=== PATIENT | female | born 1990 | race Caucasian/White ===

== ENCOUNTER 2021-03-21 16:47 | Emergency (ER) | payer MEDICAID, OTHER ==
[2021-03-21] MEDS ORDERED: XYLOCAINE 1% HCL 20 ML MDV IJ ONE (16:48)
[2021-03-21 17:30] LABS: Appearance CLEAR (CLEAR); Bacteria RARE /HPF (NEGATIVE); Bilirubin NEGATIVE (NEGATIVE); Blood NEGATIVE Ery/ul (0-5); Epithelial Cells RARE /HPF (FEW); Glucose NEGATIVE (NEGATIVE); Ketones NEGATIVE (NEGATIVE); Leukocyte Esterase MODERATE (NEGATIVE); Nitrite NEGATIVE (NEGATIVE); Protein,Urine Dip NEGATIVE (Negative); Specific Gravity 1.003 (1.005-1.025); Urobilinogen NEGATIVE mg/dL (0-1)
--- NOTE | 2021-03-21 17:32 | ERPHSYRPT ---
- History of Present Illness Time Seen by Provider: 03/21/21 16:58 Historian: patient Exam Limitations: no limitations Patient Subjective Stated Complaint: Pt states that she has had left quadrant pain for the past 3 days Triage Nursing Assessment: Pt brought self to the ER, tachycardic, rates pain 6/10, N&V, pain to left quadrants without radiation, skin n/w/d, pulses normal, bowel movements normal, pt did have burning with urination and has been taking AZO and the burning has stopped, doesn't appear to be in any distress Physician History: Patient is a 30-year-old female presents to emergency department for evaluation of left lower quadrant pain. Pain started approximately 3 days ago. Patient thought she may have been developing a urinary tract infection. She took [id number] Azo however this has not helped very much. Pain described as an ache that is constant. Pain worse with palpation. No radiation. No change in bowel movements. No diarrhea. No nausea no vomiting. No trauma. No fever. Symptoms are mild to moderate in intensity. Patient states there is some concern with possible infidelity on her 's side. However this has not been confirmed. Patient states that she wants to be checked for possible STI. Patient otherwise healthy. She voices no other complaints or concerns at this time. Patient declined pain medication. Timing/Duration: day(s) (3 days) Activities at Onset: none Quality: aching Abdominal Pain Onset Location: LLQ Pain Radiation: no radiation Severity of Pain-Max: moderate Severity of Pain-Current: mild Modifying Factors: Improves With: other (Palpation) Associated Symptoms: denies symptoms Allergies/Adverse Reactions: No Known Drug Allergies Allergy (Verified 03/21/21 17:04) Hx Tetanus, Diphtheria Vaccination/Date Given: No Hx Influenza Vaccination/Date Given: No Hx Pneumococcal Vaccination/Date Given: No Travel Risk - International Travel Have you traveled outside of the country in past 3 weeks: No - Coronavirus Screening Are you exhibiting any of the following symptoms?: No Close contact with a COVID-19 positive Pt in past 14-21 Days: No - Vaccine Status Have you recieved a Covid-19 vaccination: No - Review of Systems Constitutional: No Symptoms, No Fever, No Chills Eyes: No Symptoms Ears, Nose, & Throat: No Symptoms Respiratory: No Symptoms, No Cough, No Dyspnea Cardiac: No Symptoms, No Chest Pain, No Edema, No Syncope Abdominal/Gastrointestinal: No Symptoms, No Abdominal Pain, No Nausea, No Vomiting, No Diarrhea Genitourinary Symptoms: No Symptoms, No Dysuria Musculoskeletal: No Symptoms, No Back Pain, No Neck Pain Skin: No Symptoms, No Rash Neurological: No Symptoms, No Dizziness, No Focal Weakness, No Sensory Changes Psychological: No Symptoms Endocrine: No Symptoms Hematologic/Lymphatic: No Symptoms Immunological/Allergic: No Symptoms All Other Systems: Reviewed and Negative - Past Medical History Pertinent Past Medical History: No - Past Surgical History Past Surgical History: Yes Female Surgical History: Tubal Ligation - Social History Smoking Status: Current every day smoker How long have you smoked: YRS Exposure to second hand smoke: Yes Drug Use: none Patient Lives Alone: No - Female History Hx Last Menstrual Period: 02/28/2021 Hx Now: No - Nursing Vital Signs Nursing Vital Signs: Initial Vital Signs Temperature 98.6 F 03/21/21 16:53 Pulse Rate 108 H 03/21/21 16:53 Blood Pressure 131/82 03/21/21 16:53 O2 Sat by Pulse Oximetry 97 03/21/21 16:53 Pain Scale Pain Intensity 0 - Physical Exam General Appearance: no apparent distress, alert Eye Exam: PERRL/EOMI, eyes nml inspection Ears, Nose, Throat Exam: normal ENT inspection, pharynx normal, moist mucous membranes Neck Exam: normal inspection, non-tender, supple, full range of motion Respiratory Exam: normal breath sounds, lungs clear, airway intact, No respiratory distress Cardiovascular Exam: regular rate/rhythm, normal heart sounds, normal peripheral pulses Gastrointestinal/Abdomen Exam: soft, No tenderness, No mass Pelvic Exam: normal external exam, adnexal tenderness (Right adnexal tenderness. This appears to reproduce her symptoms.), No cervical motion tenderness, No vaginal bleeding, No uterine tenderness, No vaginal discharge Back Exam: normal inspection, normal range of motion, No CVA tenderness, No vertebral tenderness Extremity Exam: normal inspection, normal range of motion, pelvis stable Neurologic Exam: alert, oriented x 3, cooperative, normal mood/affect, nml cerebellar function, sensation nml, No motor deficits Skin Exam: normal color, warm, dry SpO2 Interpretation: normal SpO2: 97 O2 Delivery: Room Air - Course Nursing assessment & vital signs reviewed: Yes - CT Exams Abdomen/Pelvis CT Interpretation: Tele-radiologist Report (Continue negative abdomen pelvis. Compared to 06/18/2012. No new acute findings.) - Radiology Ultrasound Exam Pelvis Ultrasound: discussed w/radiologist (Per foundry process engineer ultrasound pelvis is negative for acute pelvic pathology.) Ordered Tests: Active Orders 24 hr Category Date Time Status ABDOMEN AND PELVIS W/0 CONTRAS [CT] Stat Exams 03/21/21 17:23 Taken PELVIC [US] Stat Exams 03/21/21 17:21 Taken CBC W DIFF Stat Lab 03/21/21 17:49 Completed CMP Stat Lab 03/21/21 17:49 Completed CULTURE,URINE Stat Lab 03/21/21 17:23 Received HCG,QUALITATIVE URINE Stat Lab 03/21/21 17:23 Completed UA W/RFX UR CULTURE Stat Lab 03/21/21 17:23 Completed Wet Prep Stat Lab 03/21/21 17:49 Completed Medication Summary Discontinued Medications Generic Name Dose Route Start Last Admin Trade Name Freq PRN Reason Stop Dose Admin Ceftriaxone Sodium 500 mg 03/21/21 18:27 03/21/21 18:28 Rocephin 500 Mg Inj IM 03/21/21 18:28 500 mg STAT ONE Administration Ceftriaxone Sodium Confirm 03/21/21 18:25 Rocephin 500 Mg Inj Administered 03/21/21 18:26 Dose 500 mg .ROUTE .STK-MED ONE Sodium Chloride 1,000 mls @ 999 mls/hr 03/21/21 17:39 03/21/21 18:54 Sodium Chloride 0.9% 1000 Ml IV 03/21/21 18:39 Infused .Q1H1M STA Infusion Sodium Chloride Confirm 03/21/21 17:52 Sodium Chloride 0.9% 1000 Ml Administered 03/21/21 17:53 Dose 1,000 mls @ ud .ROUTE .STK-MED ONE Ceftriaxone Sodium 500 mg/ 100 mls @ 100 mls/hr 03/21/21 18:20 03/21/21 18:26 Sodium Chloride IV 03/21/21 19:19 Not Given STAT ONE Metronidazole 500 mg 03/21/21 18:23 03/21/21 18:28 Flagyl 500 Mg PO 03/21/21 18:24 500 mg STAT ONE Administration Metronidazole Confirm 03/21/21 18:25 Flagyl 500 Mg Administered 03/21/21 18:26 Dose 500 mg .ROUTE .STK-MED ONE Lab/Rad Data: Laboratory Result Diagrams 03/21/21 17:49 03/21/21 17:49 Laboratory Results 03/21/21 03/21/21 03/21/21 Range/Units 17:49 17:49 17:49 WBC 8.5 (4.0-10.5) K/mm3 RBC 4.42 (4.1-5.4) M/mm3 Hgb 13.5 (12.0-16.0) gm/dl Hct 41.0 (35-47) % MCV 92.8 (78-100) fl MCH 30.5 (26-32) pg MCHC 32.9 (32-36) g/dl RDW 12.5 (11.5-14.0) % Plt Count 397 (150-450) K/mm3 MPV 8.8 (7.5-11.0) fl Gran % 58.0 (36.0-66.0) % Eos # (Auto) 0.13 (0-0.5) Absolute Lymphs (auto) 2.29 (1.0-4.6) Absolute Monos (auto) 1.14 (0.0-1.3) Lymphocytes % 26.9 (24.0-44.0) % Monocytes % 13.4 H (0.0-12.0) % Eosinophils % 1.5 (0.00-5.0) % Basophils % 0.2 (0.0-0.4) % Absolute Granulocytes 4.93 (1.4-6.9) Basophils # 0.02 (0-0.4) Sodium 138 (137-145) mmol/L Potassium 3.7 (3.5-5.1) mmol/L Chloride 102 (98-107) mmol/L Carbon Dioxide 28 (22-30) mmol/L Anion Gap 12.3 (5-15) MEQ/L BUN 5 L (7-17) mg/dL Creatinine 0.61 (0.52-1.04) mg/dL Estimated GFR > 60.0 ML/MIN Glucose 98 (74-106) mg/dL Calcium 9.3 (8.4-10.2) mg/dL Total Bilirubin 0.30 (0.2-1.3) mg/dL AST 33 (14-36) U/L ALT 39 H (0-35) U/L Alkaline Phosphatase 81 (38-126) U/L Serum Total Protein 7.4 (6.3-8.2) g/dL Albumin 4.4 (3.5-5.0) g/dL Urine Color (YELLOW) Urine Appearance (CLEAR) Urine pH (5-6) Ur Specific [place] (1.005-1.025) Urine Protein (Negative) Urine Ketones (NEGATIVE) Urine Blood (0-5) Leandro/ul Urine Nitrite (NEGATIVE) Urine Bilirubin (NEGATIVE) Urine Urobilinogen (0-1) mg/dL Ur Leukocyte Esterase (NEGATIVE) Urine WBC (Auto) (0-5) /HPF Urine RBC (Auto) (0-2) /HPF U Epithel Cells (Auto) (FEW) /HPF Urine Bacteria (Auto) (NEGATIVE) /HPF Urine Culture Reflexed (NO) Urine Glucose (NEGATIVE) mg/dL Urine HCG, Qual (Negative) WBC (Wet Prep) Moderate RBC (Wet Prep) Few Epi Cells (Wet Prep) Moderate Bacteria (Wet Prep) Few Clue Cells (Wet Prep) None Seen Trichomonas (Wet Prep) Few Budding Yeast (Wet Prp) None Seen 03/21/21 03/21/21 Range/Units 17:23 17:23 WBC (4.0-10.5) K/mm3 RBC (4.1-5.4) M/mm3 Hgb (12.0-16.0) gm/dl Hct (35-47) % MCV (78-100) fl MCH (26-32) pg MCHC (32-36) g/dl RDW (11.5-14.0) % Plt Count (150-450) K/mm3 MPV (7.5-11.0) fl Gran % (36.0-66.0) % Eos # (Auto) (0-0.5) Absolute Lymphs (auto) (1.0-4.6) Absolute Monos (auto) (0.0-1.3) Lymphocytes % (24.0-44.0) % Monocytes % (0.0-12.0) % Eosinophils % (0.00-5.0) % Basophils % (0.0-0.4) % Absolute Granulocytes (1.4-6.9) Basophils # (0-0.4) Sodium (137-145) mmol/L Potassium (3.5-5.1) mmol/L Chloride (98-107) mmol/L Carbon Dioxide (22-30) mmol/L Anion Gap (5-15) MEQ/L BUN (7-17) mg/dL Creatinine (0.52-1.04) mg/dL Estimated GFR ML/MIN Glucose (74-106) mg/dL Calcium (8.4-10.2) mg/dL Total Bilirubin (0.2-1.3) mg/dL AST (14-36) U/L ALT (0-35) U/L Alkaline Phosphatase (38-126) U/L Serum Total Protein (6.3-8.2) g/dL Albumin (3.5-5.0) g/dL Urine Color STRAW (YELLOW) Urine Appearance CLEAR (CLEAR) Urine pH 6.0 (5-6) Ur Specific [place] 1.003 (1.005-1.025) Urine Protein NEGATIVE (Negative) Urine Ketones NEGATIVE (NEGATIVE) Urine Blood NEGATIVE (0-5) Leandro/ul Urine Nitrite NEGATIVE (NEGATIVE) Urine Bilirubin NEGATIVE (NEGATIVE) Urine Urobilinogen NEGATIVE (0-1) mg/dL Ur Leukocyte Esterase MODERATE (NEGATIVE) Urine WBC (Auto) 16-25 (0-5) /HPF Urine RBC (Auto) 3-5 (0-2) /HPF U Epithel Cells (Auto) RARE (FEW) /HPF Urine Bacteria (Auto) RARE (NEGATIVE) /HPF Urine Culture Reflexed YES (NO) Urine Glucose NEGATIVE (NEGATIVE) mg/dL Urine HCG, Qual NEGATIVE (Negative) WBC (Wet Prep) RBC (Wet Prep) Epi Cells (Wet Prep) Bacteria (Wet Prep) Clue Cells (Wet Prep) Trichomonas (Wet Prep) Budding Yeast (Wet Prp) - Progress Progress: improved Progress Note: Trichomonas positive. GC chlamydia negative. Urinalysis positive for UTI. CT abdomen pelvis negative for acute pathology. Pelvic ultrasound negative as well. Laboratory work-up essentially nonremarkable. Patient received a dose of Rocephin and doxycycline in our ED. No indication for continued doxycycline as patient is negative for chlamydia. However we will send patient home with a prescription for Flagyl and Macrobid. Patient agrees to follow-up with primary care doctor within 48 hours for evaluation. Patient notified her regarding the findings. He understands that he must be treated. Patient voices no other complaints concerns at this time. Portions of this note were created with voice recognition technology. There may be grammatical, spelling, punctuation or sound alike errors 03/21/21 19:26 Counseled pt/family regarding: lab results, diagnosis, need for follow-up, rad results - Departure Departure Disposition: Home Clinical Impression: Trichomoniasis of vagina, STI (sexually transmitted infection), UTI (urinary tract infection) Condition: Stable Critical Care Time: No Referrals: RAGHAVENDRA KAUFMAN NP [Primary Care Provider] - Prescriptions: Metronidazole 500 mg [Flagyl 500 MG] 500 mg PO BID 7 Days #14 tablet Nitrofurantoin Macro 100 mg [Macrobid 100MG Capsule] 100 mg PO BID 7 Days #14 cap
[2021-03-21] MEDS ORDERED: Sodium Chloride 0.9% 1000 ML 1,000 ML IV STA (17:39)
[2021-03-21] MEDS ORDERED: Sodium Chloride 0.9% 1000 ML 1,000 ML ONE (17:52)
[2021-03-21 17:56] LABS: Absolute Neutrophil Ct (ANC) 4.93 (1.4-6.9); BASOPHIL % 0.2 % (0.0-0.4); Basophil (Absolute #) 0.02 (0-0.4); Eosinophil % 1.5 % (0.00-5.0); Eosinophil (Absolute #) 0.13 (0-0.5); Hemoglobin 13.5 gm/dl (12.0-16.0); Lymphocyte (Absolute #) 2.29 (1.0-4.6); Lymphocytes % 26.9 % (24.0-44.0); Mean Cell Volume 92.8 fl (78-100); Mean Corpuscular Hemoglobin 30.5 pg (26-32); Mean Corpuscular Hgb Concent. 32.9 g/dl (32-36); Mean Platelet Volume 8.8 fl (7.5-11.0); Monocyte (Absolute #) 1.14 (0.0-1.3); Monocytes % 13.4 % (0.0-12.0); Platelet Count 397 K/mm3 (150-450); Red Blood Count 4.42 M/mm3 (4.1-5.4); Red Cell Distribution Width 12.5 % (11.5-14.0); White Blood Count 8.5 K/mm3 (4.0-10.5)
[2021-03-21 18:00] LABS: Bacteria Few; Clue Cells None Seen; Red Blood Cells Few; Trichomonas Few; White Blood Cells Moderate; Yeast None Seen
[2021-03-21 18:06] LABS: ALBUMIN 4.4 g/dL (3.5-5.0); ALKALINE PHOSPHATASE 81 U/L (38-126); ANION GAP 12.3 MEQ/L (5-15); BLOOD UREA NITROGEN 5 mg/dL (7-17); CHLORIDE 102 mmol/L (98-107); Calcium 9.3 mg/dL (8.4-10.2); Carbon Dioxide 28 mmol/L (22-30); Creatinine 1 0.61 mg/dL (0.52-1.04); EST GLOMERULAR FILTRATION RATE > 60.0 ML/MIN; Glucose 98 mg/dL (74-106); Potassium 3.7 mmol/L (3.5-5.1); SGOT/AST 33 U/L (14-36); SGPT/ALT 39 U/L (0-35); SODIUM 138 mmol/L (137-145); Total Protein 7.4 g/dL (6.3-8.2)
[2021-03-21] MEDS ORDERED: Rocephin 500 MG INJ** 500 MG in Sodium Chloride 0.9% 100 ML BAG 100 ML IV ONE (18:20)
[2021-03-21] MEDS ORDERED: Flagyl 500 MG PO ONE (18:23)
[2021-03-21] MEDS ORDERED: Flagyl 500 MG ONE (18:25)
[2021-03-21] MEDS ORDERED: Rocephin 500 MG INJ ONE (18:25)
[2021-03-21] MEDS ORDERED: Rocephin 500 MG INJ IM ONE (18:27)
[2021-03-21 19:20] LABS: CHLAMYDIA DNA NOT DETECTED (NEGATIVE); GC DNA Probe NOT DETECTED (NEGATIVE)
[2021-03-21 19:27] VITALS: BP 109/70; PULSE 85
[2021-03-21 19:33] VITALS: O2SAT 97
--- NOTE | 2021-03-22 08:35 | XRAY ---
Indication: Pelvic pain. Torsion. Two-dimensional transabdominal pelvic sonogram performed. Comparison: November 24, 2018. Uterus again anteverted measuring 10.4 x 4.7 x 5.5 cm. Myometrium homogeneous in echogenicity. Endometrial stripe is thickened measuring 1.4 cm. No endometrial cavity mass or fluid collection. Right ovary measures 3.5 x 2.5 x 3.8 cm and the left measures 3.5 x 1.6 x 4.4 cm. Normal follicular cysts and perfusion bilaterally. No suspicious adnexal mass or free fluid. Impression: Thickened endometrial stripe that should be correlated with patient's menstrual cycle. Otherwise negative transabdominal pelvic sonogram. Comment: Preliminary report was given.
--- NOTE | 2021-03-22 08:35 | XRAY ---
Indication: Pelvic pain. Renal stone. Multiple contiguous axial images obtained through the abdomen and pelvis without contrast using renal stone protocol. Comparison: June 18, 2012. Lung bases demonstrate minimal dependent atelectasis. No infiltrate or effusion. Heart not enlarged. No renal calculus or evidence for obstructive uropathy in either system. Noncontrasted stomach and bowel loops appear nonobstructed. Normal appendix. No free fluid/air. Remaining liver, gallbladder, pancreas, spleen, adrenal glands, kidneys, ureters, bladder, uterus, and aorta are unremarkable for noncontrast exam. Osseous structures intact. No ventral or inguinal hernias. Impression: Continued negative CT abdomen/pelvis without contrast exam.
== END 2021-03-21 19:46 | disposition home or self-care (01) ==
LOC: ED 16:47
DX: A59.01 Trichomonal vulvovaginitis (principal); N39.0 Urinary tract infection, site not specified
CPT/HCPCS: 36000; 36415; 74176; 76856; 80053; 81001; 84703; 85025; 87086; 87210; 87491; 87591; 96360; 96372; 99284; J0696; A9270-GY